=== PATIENT | female | born 1960 | race African-American/Black ===

== ENCOUNTER 2020-03-19 19:26 | Emergency (ER) | payer OTHER ==
[~2020-03-19] VITALS: Ht 167.6 cm; Wt 92.5 kg
[2020-03-19] MEDS ORDERED: NORVASC10 MG (19:38)
[2020-03-19] MEDS ORDERED: PLAVIX75 MG (19:39)
[2020-03-19] MEDS ORDERED: CARVEDILOL12.5 MG (19:39)
[2020-03-19] MEDS ORDERED: ASPIR 8181 MG (19:39)
[2020-03-19] MEDS ORDERED: LIPITOR40 M1 (19:39)
[2020-03-19] MEDS ORDERED: GLIPIZIDE XL10 MG (19:40)
[2020-03-19] MEDS ORDERED: FORTAMET1000 MG (19:40)
[2020-03-19] MEDS ORDERED: NEURONTIN (19:40)
[2020-03-19] MEDS ORDERED: HUMULIN 70100 UNIT/2 (19:40)
[2020-03-19] MEDS ORDERED: DICLOFENAC SODI75 MG PO (21:01)
== END 2020-03-19 21:35 | disposition home or self-care (01) ==
LOC: ER 19:26
DX: M25.562 Pain in left knee (principal)

== ENCOUNTER 2024-05-13 07:17 | Emergency (ER) | payer OTHER ==
[~2024-05-13] VITALS: Ht 167.6 cm; Wt 82.6 kg
[~2024-05-13 07:17] MED LIST: ASPIR 8181 MG; CARVEDILOL12.5 MG; DICLOFENAC SODI75 MG PO; FORTAMET1000 MG; GLIPIZIDE XL10 MG; HUMULIN 70100 UNIT/2; LIPITOR40 M1; NEURONTIN; NORVASC10 MG; PLAVIX75 MG
[2024-05-13] MEDS ORDERED: XIGDUO XR 10 M1 EAC1 PO (07:35)
[2024-05-13] MEDS ORDERED: FLEXERIL (07:35)
[2024-05-13 09:11] LABS: HEMATOCRIT 38.7 % (36.0-45.00); HEMOGLOBIN 12.7 g/dL (12.0-15.00); MEAN CELL VOLUME 75.8 fL (80.00-100.00); MEAN CORPUSCULAR HEMOGLOBIN 24.9 pg (27.00-32.0); MEAN CORPUSCULAR HGB CONC 32.9 g/dl (32.0-36.0); PLATELET COUNT 279 K/uL (150-450); RED BLOOD COUNT 5.11 M/uL (4.00-6.00)
== END 2024-05-13 10:54 | disposition home or self-care (01) ==
LOC: ER 07:18
PROVIDERS: Emergency Medicine
DX: U07.1 COVID-19 (principal); J00 Acute nasopharyngitis [common cold]; I10 Essential (primary) hypertension; E11.9 Type 2 diabetes mellitus without complications; Z79.4 Long term (current) use of insulin